=== PATIENT | female | born 1970 | race Caucasian/White ===

== ENCOUNTER → 2016-04-30 | Outpatient (CLI) | payer OTHER ==
[~2016-04-30] MED LIST: ATOR-22 PO; BACL1TAB PO; BUSP15TA70 PO; CITA40TA4 PO; CYCL10TA6 PO; DRGTP100 TOP; FENT75DI2 TOP; GABA300C19 PO; HYDR-3419 PO; HYDR-3983 PO; LISI-725 PO; LISI10TA PO; ONDA4TAB65 PO; OXYC-57 PO
--- NOTE | 2016-04-30 16:18 | DIAGNOSTIC IMAGING REPORT ---
L-SPINE FLEX/EXT BENDING MIN 6 CLINICAL HISTORY: CHRONIC LOW BACK PAIN COMPARISON STUDY: 11/13/2015 FINDINGS: Operative fusion L5-S1 with disc spacer placement. Minimal to mild degenerative vertebral disc change at the entire lumbar region. Anatomic alignment with the patient in flexion and extension. No evidence for subluxation on a positional basis. IMPRESSION: Postoperative changes L5-S1 consistent with a prior operative fusion. Anatomic alignment on all images Electronically signed by: Alex Lanier M.D. 04/30/2016 4:16 PM Dictated Date/Time: 04/30/2016 4:15 PM
[2016-04-30 18:43] LABS: ALT/SGPT 28 U/L (12-78); AST/SGOT 15 U/L (15-37); BLOOD UREA NITROGEN 10 mg/dl (7-18); BUN/CREATININE RATIO 10.3 (10-20); CALCIUM 9.2 mg/dl (8.5-10.1); CARBON DIOXIDE 27 mmol/L (21-32); CHLORIDE 109 mmol/L (98-107); CREATININE 0.98 mg/dl (0.60-1.20); GLUCOSE 83 mg/dl (70-99); POTASSIUM 4.2 mmol/L (3.5-5.1); SODIUM 144 mmol/L (136-145)
[2016-04-30 18:45] LABS: ALB/GLOB RATIO 1.2 (0.9-2); ALKALINE PHOSPHATASE 65 U/L (45-117); CHOLESTEROL 149 mg/dl (0-200); CHOLESTEROL/HDL RATIO 2.9; HDL CHOLESTEROL 52 mg/dl; LDL CHOLESTEROL CALCULATED 54 mg/dl; TRIGLYCERIDES 214 mg/dl (0-150); VERY LOW DENSITY LIPOPROT CALC 43 mg/dl
== END | disposition home or self-care (01) ==
LOC: C.RADPV 15:35
PROVIDERS: ATTEND Nurse Practitioner
DX: M54.5 Low back pain (principal); I10 Essential (primary) hypertension; E55.9 Vitamin D deficiency, unspecified; E78.5 Hyperlipidemia, unspecified

== ENCOUNTER → 2016-06-24 | Outpatient (CLI) | payer OTHER ==
[~2016-06-24] MED LIST changes: +GABA-1218 PO; -GABA300C19 PO
== END | disposition home or self-care (01) ==
LOC: C.PATHSPEC 17:14
PROVIDERS: ATTEND Plastic Surgery
DX: L72.11 Pilar cyst (principal)

== ENCOUNTER 2016-12-17 14:21 | Emergency (ER) | payer OTHER ==
[~2016-12-17] VITALS: Ht 180.3 cm; Wt 120.0 kg
[~2016-12-17 14:21] MED LIST changes: -ATOR-22 PO; -BACL1TAB PO; -BUSP15TA70 PO; -CITA40TA4 PO; -DRGTP100 TOP; -GABA-1218 PO; +GABA300C19 PO; -HYDR-3419 PO; -LISI-725 PO; -OXYC-57 PO
[2016-12-17 14:38] VITALS: TEMP 36.9; Ht 180.3 cm; Wt 120.0 kg
[2016-12-17] MEDS ORDERED: CYCLOBENZAPRINE HCL 10 MG TAB PO STA (15:14)
[2016-12-17] MEDS ORDERED: KETOROLAC TROMETHAMINE 30 MG/ML VIAL IV STA (15:14)
[2016-12-17] MEDS ORDERED: DEXAMETHASONE SOD INJ 4 MG/ML VIAL IV ONE (15:15)
[2016-12-17] MEDS ORDERED: HYDROmorphone INJ 1 MG/ML SYR IV PRN (15:15)
--- NOTE | 2016-12-17 15:28 | EMERGENCY ROOM VISIT NOTE ---
History First contact with patient: 14:55 Chief Complaint: BACK PAIN Stated Complaint: SEVERE BACK PAIN History of Present Illness The patient is a 46 year old female who presents to the Emergency Room with complaints of lower back pain radiating down her left leg greater than right. The patient has a history of chronic back pain. She has had 2 surgeries on her back. She follows with pain management. She does occasionally get numbness and tingling into her legs also. She denies any urinary or bowel incontinence. The patient wears a fentanyl patch 100 g daily. She also has Vicodin at home to take every 6 hours. This has not been helping with her pain this week. The patient remembers rolling over in bed and feeling a pop earlier in the week. She has had this pain since. She denies any fever, chills or infectious symptoms. Review of Systems 10 system review performed and negative unless noted in HPI or below Past Medical/Surgical History Medical Problems: (1) Anxiety (2) Chronic, continuous use of opioids (3) Depression (4) Hypertension (5) Lumbago Family History Diabetes, hypertension, heart disease Social History Smoking Status: Current Every Day Smoker Alcohol Use: none Drug Use: none Marital Status: Housing Status: lives with family Occupation Status: unemployed Current/Historical Medications Scheduled Atorvastatin (Lipitor), 20 MG PO DAILY Baclofen (Lioresal), 10 MG PO TID Buspirone Hcl (Buspar), 15-22.5 MG PO BID Citalopram Hydrobromide (Citalopram Hydrobromide), 40 MG PO DAILY Fentanyl (Fentanyl), 100 MCG TOP CQ72HR Gabapentin (Neurontin), 900 MG PO TID Lisinopril (Zestril), 20 MG PO DAILY Scheduled PRN Cyclobenzaprine Hcl (Flexeril), 10 MG PO TID PRN for Muscle Spasm Hydrocodon/Acetaminophen 5MG/300MG (Vicodin (5MG/300MG)), 1 TAB PO Q4H PRN for Pain Hydrocodone/Acetaminophen 7.5MG/325MG (Enderlin 7.5MG/325MG), 1 TAB PO Q6H PRN for Pain Ondansetron Hcl (Zofran), 4 MG PO TID PRN for Nausea or Vomiting Physical Exam Vital Signs Date Time Temp Pulse Resp B/P (MAP) Pulse Ox O2 Delivery O2 Flow Rate FiO2 12/17/16 18:17 81 18 130/68 96 12/17/16 17:24 73 20 127/59 94 Room Air 12/17/16 16:28 73 18 130/74 97 Room Air 12/17/16 14:38 36.9 87 17 138/91 98 Room Air Physical Exam VITALS: Vitals are noted on the nurse's note and reviewed by myself. Vital signs stable. GENERAL: 46-year-old female, obviously uncomfortable SKIN: The skin was without rashes, erythema, edema, or bruising. HEAD: Normocephalic atraumatic. MOUTH: Mucous membranes moist. NECK: Supple without nuchal rigidityCervical spine is nontender. No JVD. HEART: Regular rate and rhythm without murmurs gallops or rubs. LUNGS: Clear to auscultation bilaterally without wheezes, rales or rhonchi. No accessory muscle use. MUSCULOSKELETAL: Mild tenderness over the spinal processes in the lumbar spine. Tenderness also elicited over the left SI joint. Positive straight leg test on the left. DP pulse +2 bilaterally. Strength 5/5 throughout. NEURO: Patient was alert and oriented to person place and time. Normal sensation to touch. No focal neurological deficits. Medical Decision & Procedures Laboratory Results Test 12/17/16 15:34 Urine Test NEG (NEG) Medications Administered Medications (Trade) Dose Ordered Sig/Lida Route Start Time Stop Time Status Last Admin Dose Admin Cyclobenzaprine HCl (Flexeril Tab) 10 mg NOW STAT PO 12/17/16 15:14 12/17/16 15:16 DC 12/17/16 15:35 10 MG Hydromorphone HCl (Dilaudid Inj) 1 mg Q1H PRN IV 12/17/16 15:15 12/17/16 18:42 DC 12/17/16 15:35 1 MG Ketorolac Tromethamine (Toradol Inj) 30 mg NOW STAT IV 12/17/16 15:14 12/17/16 15:16 DC 12/17/16 15:35 30 MG Dexamethasone Sodium Phosphate (Decadron Inj) 10 mg NOW ONCE IV 12/17/16 15:15 12/17/16 15:16 DC 12/17/16 15:35 10 MG Hydromorphone HCl (Dilaudid Inj) 2 mg ONE ONCE IV 12/17/16 16:30 12/17/16 16:31 DC 12/17/16 16:36 2 MG Acetaminophen/ Hydrocodone Bitart (Enderlin 5/325mg Home Pack) 1 homepack UD ONCE PO 12/17/16 18:15 12/17/16 18:16 DC 12/17/16 18:16 1 HOMEPACK ED Course The patient was seen and examined A saline lock was established She was given Dilaudid 1 mg IV, Toradol 30 mg IV and Decadron 10 mg IV. She was given Flexeril 10 mg by mouth Upon reevaluation, she was still complaining of significant pain. She was given Dilaudid 2 mg IV. This seemed to help for approximately 30 minutes. The case was discussed with Dr. Muñiz from pain management. We formulated a plan. This was discussed with the patient and the patient's significant other. She was comfortable with this plan. She was given a home pack of baclofen and Vicodin She was discharged home with a dray truck driver. Medical Decision Differential diagnosis: Spine fracture, ligamentous injury, subluxation, spondylolisthesis, spondylosis, herniated disc, contusion, muscle spasm This patient is a 46-year-old female that presents emergency department with complaints of lower back pain radiating into her left leg. This pain is chronic in nature. There was no traumatic injury. I did not find imaging necessary. There are no deficits such as urinary or bowel incontinence. Sensation in the lower extremities is intact. The case was discussed with pain management. They suggested trying baclofen instead of Flexeril. She will follow up with pain management next week in the office, return to the emergency department with any new or worsening symptoms Medication Reconcilliation Current Medication List: was personally reviewed by me Blood Pressure Screening Patient's blood pressure: Elevated blood pressure Blood pressure disposition: Elevated BP felt to be situational Consults Consulting Physician: Dr. Muñiz Impression Primary Impression: Chronic back pain Departure Information Dispostion Home / Self-Care Condition FAIR Prescriptions Baclofen (LIORESAL) 10 Mg Tab 10 MG PO TID for Muscle Spasms, #20 TAB Prov: Marianna Baires PA-C 12/17/16 Hydrocodon/Acetaminophen 5MG/300MG (VICODIN (5MG/300MG)) 1 Tab Tab 1 TAB PO Q4H Y for Pain, #15 TAB Prov: Marianna Baires PA-C 12/17/16 Referrals No Doctor, Assigned (PCP) Patient Instructions [facility] Additional Instructions You were evaluated in the emergency department for back pain. The case was discussed with Dr. Muñiz from pain management who recommended trying a different muscle relaxant. You may take 2 of your current dose of Vicodin every 4 hours as needed for pain over the next [address] or drink alcohol taking this medication. It will make you drowsy. I recommend a stool softener such as Colace 100 mg 1 tab twice daily while taking this medication, as this can cause constipation. Please stop Flexeril. Take baclofen 1 tablet every 8 hours as needed for muscle spasms. Again, do not drive or drink alcohol taking this medication. Please call the pain management doctor first thing Tuesday morning for a follow- up appointment Return to the emergency department if you have any of the following symptoms: -Urinary or bowel incontinence -Numbness in your groin -Any new injury
[2016-12-17] MEDS ORDERED: DRGTP100 TOP (16:11)
[2016-12-17] MEDS ORDERED: LISI-725 PO (16:11)
[2016-12-17] MEDS ORDERED: CYCL10TA6 PO (16:11)
[2016-12-17] MEDS ORDERED: HYDROmorphone INJ 1 MG/ML SYR IV ONE (16:30)
[2016-12-17] MEDS ORDERED: BUSP15TA70 PO (17:52)
[2016-12-17] MEDS ORDERED: ATOR-22 PO (17:52)
[2016-12-17] MEDS ORDERED: BACLOFEN 10 MG TAB PO SCH (18:00)
[2016-12-17] MEDS ORDERED: BACLOFEN 10 MG TAB PO PRN (18:00)
[2016-12-17] MEDS ORDERED: BACL1TAB PO (18:03)
[2016-12-17] MEDS ORDERED: HYDR-3419 PO (18:03)
[2016-12-17] MEDS ORDERED: NORCO 5/325MG HOME PACK PO ONE (18:15)
[2016-12-17 18:17] VITALS: BP 130/68; PULSE 81; O2SAT 96
[2016-12-17] MEDS ORDERED: CITA40TA4 PO (21:18)
== END 2016-12-17 18:17 | disposition home or self-care (01) ==
LOC: C.EDB 14:22
DX: G89.29 Other chronic pain (principal); M54.5 Low back pain; I10 Essential (primary) hypertension; F41.9 Anxiety disorder, unspecified; F32.9 Major depressive disorder, single episode, unspecified; F17.200 Nicotine dependence, unspecified, uncomplicated; Z83.3 Family history of diabetes mellitus; Z82.49 Family history of ischemic heart disease and other diseases of the circulatory system; Z79.899 Other long term (current) drug therapy

== ENCOUNTER → 2017-05-31 | Outpatient (CLI) | payer OTHER ==
[~2017-05-31] MED LIST changes: +ATOR-22 PO; +BUSP15TA70 PO; +CITA40TA4 PO; +DRGTP100 TOP; -FENT75DI2 TOP; +GABA-1218 PO; -GABA300C19 PO; +LISI-725 PO; -LISI10TA PO
[2017-05-31 13:42] LABS: BLOOD UREA NITROGEN 9 mg/dl (7-18); CALCIUM 8.9 mg/dl (8.5-10.1); CARBON DIOXIDE 29 mmol/L (21-32); CHOLESTEROL 167 mg/dl (0-200); CREATININE 1.04 mg/dl (0.60-1.20); GLUCOSE 96 mg/dl (70-99); SODIUM 140 mmol/L (136-145)
[2017-05-31 13:48] LABS: LDL CHOLESTEROL CALCULATED 77 mg/dl
== END | disposition home or self-care (01) ==
LOC: C.LABPVFM 10:36
PROVIDERS: ATTEND Nurse Practitioner
DX: R79.89 Other specified abnormal findings of blood chemistry (principal); I10 Essential (primary) hypertension; E78.5 Hyperlipidemia, unspecified

== ENCOUNTER → 2017-06-16 | Outpatient (CLI) | payer OTHER ==
[2017-06-16 17:17] LABS: BASO % 0.3 %; BASO ABS # 0.03 K/uL (0-0.2); HEMATOCRIT 45.5 % (37-47); HEMOGLOBIN 14.5 g/dL (12.0-16.0); IG# 0.05 K/uL (0.00-0.02); LYMPH % 45.1 %; LYMPH ABS # 4.42 K/uL (1.2-3.4); MEAN CELL VOLUME 96.4 fL (80-100); MEAN CORPUSCULAR HEMOGLOBIN 30.7 pg (25-34); MEAN CORPUSCULAR HGB CONC 31.9 g/dl (32-36); MEAN PLATELET VOLUME 10.9 fL (7.4-10.4); MONO % 5.3 %; MONO ABS # 0.52 K/uL (0.11-0.59); NEUT % 46.8 %; NEUT ABS # 4.59 K/uL (1.4-6.5); PLATELET COUNT 206 K/uL (130-400); RED CELL DISTRIBUTION WIDTH CV 14.5 % (11.5-14.5); RED CELL DISTRIBUTION WIDTH SD 51.7 fL (36.4-46.3); WHITE BLOOD COUNT 9.81 K/uL (4.8-10.8)
== END | disposition home or self-care (01) ==
LOC: C.LABPVFM 15:10
PROVIDERS: ATTEND Physician Assistant Medical
DX: Z01.812 Encounter for preprocedural laboratory examination (principal); Z04.9 Encounter for examination and observation for unspecified reason; M54.5 Low back pain; M51.26 Other intervertebral disc displacement, lumbar region

== ENCOUNTER → 2017-06-20 | Outpatient (CLI) | payer OTHER ==
--- NOTE | 2017-06-20 09:59 | DIAGNOSTIC IMAGING REPORT ---
THORACOLUMBAR SPINE 2 VIEWS CLINICAL HISTORY: POST SPINAL CORD STIMULATOR COMPARISON STUDY: Lumbar spine radiograph April 30, 2016. FINDINGS: Spinal cord electrode is in place. Electrode appears intact. The electrode enters the canal at the T12-L1 level. Electrode tip is at the T9 level and projects over the posterior aspect of the canal. No fracture is identified within the lower thoracic or lumbar spine. There are cholecystectomy clips. An L5-S1 fusion is partially imaged. IMPRESSION: 1. Interval placement of spinal cord stimulator. Electrode intact with tip at the mid T9 level. 2. No lumbar spine fracture. Electronically signed by: Josh Pittman M.D. 06/20/2017 9:58 AM Dictated Date/Time: 06/20/2017 9:55 AM
== END | disposition home or self-care (01) ==
LOC: C.RADBC 09:18
PROVIDERS: ATTEND Anesthesiology
DX: Z04.8 Encounter for examination and observation for other specified reasons (principal)

== ENCOUNTER 2017-08-09 11:21 | Day surgery (SDC) | payer BC, OTHER ==
[2017-07-28 08:47] VITALS: BMI 37.0
--- NOTE | 2017-07-28 09:13 | PAT Medication Instructions ---
Service Date July 28, 2017. Current Home Medication List Atorvastatin (Lipitor), 20 MG PO QAM Buspirone Hcl (Buspar), 22.5 MG PO BID Cholecalciferol (Vitamin D3), 1 CAP PO QPM Cyclobenzaprine Hcl (Flexeril), 10 MG PO TID Duloxetine HCl (Cymbalta), 80-90 CAP PO QAM Fentanyl (Fentanyl), 100 MCG TOP CQ72HR Gabapentin (Neurontin), 750 MG PO TID Lisinopril (Zestril), 20 MG PO QPM Ondansetron Hcl (Zofran), 4 MG PO TID PRN for Nausea or Vomiting Oxycodone/Acetaminophen 5MG/325MG (Percocet 5MG/325MG), 1 TABLET PO Q6H PRN for Pain Medication Instructions For Your Scheduled Surgery -Continue as directed: Fentanyl (Fentanyl), 100 MCG TOP CQ72HR - Hold the following medications the morning of surgery: Cyclobenzaprine Hcl (Flexeril), 10 MG PO TID - Take the following medications the morning of surgery with a sip of water: Atorvastatin (Lipitor), 20 MG PO QAM Buspirone Hcl (Buspar), 22.5 MG PO BID Duloxetine HCl (Cymbalta), 80-90 CAP PO QAM Gabapentin (Neurontin), 750 MG PO TID Ondansetron Hcl (Zofran), 4 MG PO TID PRN for Nausea or Vomiting (if needed) Oxycodone/Acetaminophen 5MG/325MG (Percocet 5MG/325MG), 1 TABLET PO Q6H PRN for Pain (if needed, can be taken up to four hours before surgery) - Take the following medications as scheduled the night before surgery: Buspirone Hcl (Buspar), 22.5 MG PO BID Cholecalciferol (Vitamin D3), 1 CAP PO QPM Cyclobenzaprine Hcl (Flexeril), 10 MG PO TID Gabapentin (Neurontin), 750 MG PO TID Lisinopril (Zestril), 20 MG PO QPM Ondansetron Hcl (Zofran), 4 MG PO TID PRN for Nausea or Vomiting (if needed) Oxycodone/Acetaminophen 5MG/325MG (Percocet 5MG/325MG), 1 TABLET PO Q6H PRN for Pain (if needed) If you have any questions please call us at [phone] or [phone] or [phone]
[2017-07-28 10:19] LABS: BASO % 0.3 %; BASO ABS # 0.03 K/uL (0-0.2); EOS % 1.5 %; EOS ABS # 0.16 K/uL (0-0.5); HEMATOCRIT 43.6 % (37-47); HEMOGLOBIN 14.3 g/dL (12.0-16.0); IG# 0.03 K/uL (0.00-0.02); LYMPH % 31.9 %; LYMPH ABS # 3.41 K/uL (1.2-3.4); MEAN CELL VOLUME 95.6 fL (80-100); MEAN CORPUSCULAR HEMOGLOBIN 31.4 pg (25-34); MEAN CORPUSCULAR HGB CONC 32.8 g/dl (32-36); MEAN PLATELET VOLUME 10.8 fL (7.4-10.4); MONO % 5.2 %; MONO ABS # 0.56 K/uL (0.11-0.59); NEUT % 60.8 %; PLATELET COUNT 183 K/uL (130-400); RED CELL DISTRIBUTION WIDTH CV 14.2 % (11.5-14.5); RED CELL DISTRIBUTION WIDTH SD 49.9 fL (36.4-46.3); WHITE BLOOD COUNT 10.69 K/uL (4.8-10.8)
[2017-07-28 11:28] LABS: CALCIUM 9.4 mg/dl (8.5-10.1); CREATININE 1.02 mg/dl (0.60-1.20); POTASSIUM 3.9 mmol/L (3.5-5.1)
[~2017-08-09] VITALS: Ht 180.3 cm; Wt 121.5 kg
[~2017-08-09 11:21] MED LIST changes: +ATROPINE SULFATE 0.1 MG/ML 5ML SYR IV PRN; +CEFAZOLIN 2000 MG/60 ML D5W 50 ML IV SCH; +CHOL2000 PO; -CITA40TA4 PO; +DULO-24 PO; +EpHEDrine SULFATE INJ 50 MG/ML AMP IV PRN; -HYDR-3983 PO; +HYDROmorphone INJ 2 MG/ML SYR/VIAL IV PRN; +LACTATED RINGER'S 1000ML 1,000 ML IV SCH; +ONDANSETRON INJ 2 MG/ML 2 ML VIAL IV PRN; +OXYC-57 PO; +PHENYLEPHRINE 100MCG/ML 5ML SYR IV PRN
--- NOTE | 2017-08-09 11:39 | History & Physical Bridge Note ---
H&P Re-Evaluation Bridge Note: History reviewed, examination performed, pertinent laboratory and imaging studies reviewed. No contraindications noted to proceeding with the proposed procedure. Potential risks including infection, nerve injury, bleeding, hematoma or seroma formation, additional surgical procedures to address these complications, as well as failure to achieve complete relief of preoperative symptoms after the procedure were discussed with the patient. Risks associated with anesthesia required to perform this procedure were reviewed. Alternatives to this procedure were discussed with the patient. Patient's questions were answered. Patient gave informed consent. I have examined the patient, reviewed the History & Physical and in the interval since the performance of the History & Physical I have noted the following changes of clinical significance: No changes noted
[2017-08-09 11:43] VITALS: BP 146/77; PULSE 88; TEMP 37.7; O2SAT 95; Ht 180.3 cm; Wt 121.5 kg
[2017-08-09] MEDS ORDERED: EpINEphrine INJ 1MG/ML AMP 1 MG/ML AMP ONE (12:34)
[2017-08-09] MEDS ORDERED: POVIDONE-IODINE OP SOLN 30 ML BTL ONE (12:34)
[2017-08-09] MEDS ORDERED: BUPIVACAINE 0.25% 30 ML VIAL ONE (12:34)
[2017-08-09] MEDS ORDERED: MIDAZOLAM HCL 1 MG/ML 2ML VIAL ONE (13:08)
[2017-08-09] MEDS ORDERED: FENTANYL CITRATE INJ 50 MCG/1 ML 2 ML VIAL ONE ×3 (13:08→15:40)
[2017-08-09] MEDS ORDERED: LIDO 2%/EPINEPHRINE 1:100000 20 ML VIAL ONE (14:43)
[2017-08-09] MEDS ORDERED: LIDOCAINE 2% 20 MG/ML 5ML SYR ONE (15:21)
[2017-08-09] MEDS ORDERED: ONDANSETRON INJ 2 MG/ML 2 ML VIAL ONE (15:44)
[2017-08-09] MEDS ORDERED: PROPOFOL IV EMULSION 10 MG/ML 20 ML VIAL ONE ×2 (15:56→16:32)
[2017-08-09] MEDS ORDERED: LIDOCAINE/EPINEPHRINE 2% 1:200,000 20 ML SDV INJ ONE (16:27)
--- NOTE | 2017-08-09 16:53 | [facility] Operative Report ---
Operative Report Operative Date August 09, 2017. Pre-Operative Diagnosis Chronic neuropathic pain of the bilateral lower extremities; lumbar post-laminectomy syndrome Post-Operative Diagnosis Chronic neuropathic pain of the bilateral lower extremities; lumbar post-laminectomy syndrome Procedure(s) Performed Implantation of Spinal Cord Stimulator Surgeon Dr. Aleman Estimated Blood Loss 5cc Specimens None Drains None Anesthesia Type MAC Complication(s) none Disposition Recovery Room / PACU Description of Procedure INSERTION OF SPINAL CORD STIMULATOR LEAD AND PULSE GENERATOR PREOPERATIVE DIAGNOSIS: Lumbar postlaminectomy syndrome. POSTOPERATIVE DIAGNOSIS: Same. PROCEDURE PERFORMED: 1. Percutaneous insertion of a trial Medtronic Octrode lead x2 using biplanar fluoroscopy. 2. Interrogation and reprogramming of spinal cord stimulator lead. SURGEON: Dr. Aleman. ANESTHESIA: Monitored anesthesia care. LEADS PLACED: 2 electrodes leads with the 0 electrode at T9 vertebral body. Left and right of midline Prior to starting, the Patients diagnosis and the procedure were reviewed with the patient in detail. Possible risks and complications including infection, bleeding, damage to surrounding structures and increased pain were discussed. Alternative therapies were also reviewed. Patients questions were answered and they agreed to proceed. Informed consent was obtained. Allergies and medication list was reviewed. The patient was brought to the procedure room and placed in prone position. Immediately prior to starting the procedure, a ``time out was conducted with the staff and the patient where the patient was identified, proposed procedure was verified, consent was reviewed and the proper site for the planned procedure was identified. Pre-procedure antibiotic was given consisting of cefazolin 2 g. Patient was given any intravenous conscious sedation by members of the Anesthesia Department. Constant verbal contact was maintained throughout the procedure. Biplanar fluoroscopy was used to assist in placement of the needle as well as to evaluate final needle position prior to the injection. On examination, no signs of skin breakdown or infection were noted at the injection site. The site was cleansed with DuraPrep followed by Betadine. Sterile drapes were applied. Patient tolerated the procedure uneventfully without complications. Patient was brought to recovery area and observed. Vital signs were stable prior to discharge. Patient was discharged home with standard discharge instructions after approximately 30 minutes with an adult hammer driver. Thoracolumbar spine was prepped with DuraPrep followed by Betadine solution and draped in sterile fashion. Ioban was placed over the operative area. Next the T12-L1 interspace was identified in a true AP view for epidural access. The skin and subcutaneous tissues over the right pedicle of L2 vertebra was anesthetized with 2% Xylocaine with 1-2 of those epinephrine, [address] to the lamina using a 22-gauge, 3.5 spinal needle. A 14 gauge Medtronic Tuohy epidural needle was inserted until it made contact with the lamina of L1 and walked off the lamina into the T12/L1 interspace. Loss of resistance to wire technique was utilized for entrance into the epidural space. Next an Octrode lead was passed through the Tuohy epidural needle and positioned in the midline so that the 0 electrode was located at the superior edge of the T9 vertebra. At this point, the patient was questioned and coverage of the painful area was confirmed. The confirmation of the covered area was obtained multiple times throughout the trial. No CSF, blood or paresthesia were noted during placement of the lead. Using similar technique, a second lead was placed on the right side uneventfully and position was adjusted to optimize the stimulation on that side. Once lead position was optimized, an incision was made at the needle entry site with a scalpel. Hemostasis obtained using electrocautery. Dorsal lumbar fascia was exposed and using the anchoring device, both leads were anchored to the dorsal lumbar fascia using 0 silk sutures. Next, in the right hip area a pocket was created using scalpel electrocautery. Hemostasis was obtained using electrocautery. Next, using a tunneling device from the pocket site to the back incision, the leads were brought to the pocket site. Leads were connected to a rechargeable pulse generator. Impedance checked and found to be appropriate. The generator was secured to the fascia using 0 Prolene sutures. Both wounds were irrigated with bacitracin-containing normal saline. Both wounds were closed in similar fashion using continuous 0 strata fix, antibiotic coated suture for deeper layer and running 3-0 antibiotic coated strata fix suture for subcuticular layer. Prineo dressing was applied to the skin. 4 x 4 gauze and pressure dressing was applied to both sites. Abdominal binder was placed. Ga was then taken to the recovery room. No complications occurred. The stimulus programmed in the recovery room. I attest to the content of the Intraoperative Record and any orders documented therein. Any exceptions are noted below.
--- NOTE | 2017-08-09 16:58 | Discharge Instructions ---
Discharge Instructions Date of Service August 09, 2017. Visit Reason for Visit: Chronic Lumbago, Post Laminectomy Syndrome, Chroni Discharge Discharge Diagnosis / Problem: Chronic pain due to lumbar postlaminectomy syndrome. Insertion of a spinal Discharge Goals Goal(s): Decrease discomfort, Improve function Medications Stopped Medications Name(s): None Activity Recommendations Activity Recommendations: no lifting of items 5lbs or more, no repetitive bending, no repetitive twists, no repetitive reaching over head, no showers for 3 days Lifting Limitations: no more than 5 pounds May Resume Sexual Activity: after follow-up appointment Shower/Bathe: may shower/bathe in 3 days Driving or Machine Use: resume 3 days after discharge Anesthesia . Post Anesthesia Instructions: If you have had General Anesthesia or IV Sedation: * Do not drive today. * Resume driving when surgeon permits. * Do not make important decisions or sign legal documents today. * Call surgeon for: * Temperature elevations greater than 101 degrees F. * Uncontrollable pain. * Excessive bleeding. * Persistent nausea and vomiting. * Medication intolerance (nausea, vomiting or rash). * For nausea and vomiting use only clear liquids such as: tea, soda, bouillon until nausea subsides, then gradually increase diet as tolerated. * If you have any concerns or questions, call your surgeon's office. If physician is unavailable and it is an emergency, call 911 or go to the nearest emergency room. . Instructions Instructions / Follow-Up . * Change dressings daily. Apply sterile dry gauze. * Call [facility] [phone] or go to the nearest emergency room if he experience high fevers, new back pain, new neurological symptoms such as numbness or weakness in the lower extremity or new bowel bladder incontinence. Also of call if he experience a headache that is positional. * Wear abdominal binder. * No showers for 3 days. * Resume normal activity. No repetitive bending, twisting or reaching overhead for 2 weeks. Do not lift more than 5 pounds for 2 weeks. . Follow-Up Follow-Up: 1 week in office for wound check Diet Recommendations Home Diet: no limitations Procedures Procedures Performed: Implantation of Spinal Cord Stimulator Pending Studies Studies pending at discharge: no Medical Emergencies . Who to Call and When: Medical Emergencies: If at any time you feel your situation is an emergency, please call 911 immediately. . Non-Emergent Contact Non-Emergency issues call your: Pain Management provider Call Non-Emergent contact if: temperature is above 101.5, your pain is not controlled, your pain is unusual for you, wound has increased drainage, wound has increased redness, wound has increased pain . . "Provider Documentation" section prepared by Hema Aleman. . [place] Drug Monitoring Program Search Results: patient reviewed within database
[2017-08-09] MEDS ORDERED: HYDROCODONE/ACETAMIN 5/325MG TAB PO PRN (17:00)
[2017-08-09] MEDS ORDERED: HYDROmorphone INJ 0.5 MG/0.5 ML SYR ONE (17:02)
--- NOTE | 2017-08-09 17:27 | Anesthesiology Progress Note ---
Anesthesia Post Op Note Date & Time August 09, 2017 at 17:27 Vital Signs Pain Intensity: 4 Vital Signs Past 12 Hours Date Time Temp Pulse Resp B/P (MAP) Pulse Ox O2 Delivery O2 Flow Rate FiO2 08/09/17 17:23 67 18 08/09/17 17:23 68 18 95 08/09/17 17:21 113/77 08/09/17 17:18 68 19 93 08/09/17 17:18 66 19 08/09/17 17:16 109/56 08/09/17 17:13 69 15 93 08/09/17 17:13 68 15 08/09/17 17:11 116/62 08/09/17 17:08 73 21 08/09/17 17:08 74 21 95 08/09/17 17:06 137/66 08/09/17 17:03 70 13 92 08/09/17 17:03 70 13 08/09/17 17:01 115/74 08/09/17 16:58 73 08/09/17 16:58 37.2 76 16 121/78 95 Room Air 08/09/17 16:58 73 121/78 94 08/09/17 11:43 37.7 88 18 146/77 (100) 95 Room Air Notes Mental Status: alert / awake / arousable, participated in evaluation Pt Amnestic to Procedure: Yes Nausea / Vomiting: adequately controlled Pain: adequately controlled Airway Patency, RR, SpO2: stable & adequate BP & HR: stable & adequate Hydration State: stable & adequate Anesthetic Complications: no major complications apparent
[2017-08-09 17:31] VITALS: BP 119/59; PULSE 70; TEMP 36.7; O2SAT 97
[2017-08-09 18:00] VITALS: BP 116/61; PULSE 69; TEMP 36.7; O2SAT 93
--- NOTE | 2017-08-09 18:20 | DIAGNOSTIC IMAGING REPORT ---
THORACIC SPINE 3 VIEWS ROUTINE HISTORY: 46 years-old Female Evaluate spinal cord stimulator leads chronic mid and lower back pain COMPARISON: Spot fluoroscopic images of the lumbar spine of same day TECHNIQUE: 4 views of the thoracic spine FINDINGS: Battery pack projects over the abdominal right lower quadrant. There are 2 spinal stimulator leads noted which appear to be intact and enter the central canal at the level of T12-L1 with leads extending superiorly terminating at the level of the T8-T9 disc space. Mostly mild multilevel intervertebral disc space narrowing with spondylitic spurring about the thoracic spine. No acute fracture or subluxation identified. Partially imaged fusion hardware of the lower lumbar spine. Cholecystectomy clips are noted. Lungs appear hypoinflated. IMPRESSION: 1. Intact spinal stimulator leads terminate at the level of the T8-T9 disc space. 1. Mild multilevel degenerative changes. The above report was generated using voice recognition software. It may contain grammatical, syntax or spelling errors. Electronically signed by: Guille Kirby M.D. 08/09/2017 6:19 PM Dictated Date/Time: 08/09/2017 6:15 PM
[2017-08-09 18:30] VITALS: BP 122/80; PULSE 76; TEMP 36.9; O2SAT 94
== END 2017-08-09 18:35 | disposition home or self-care (01) ==
LOC: C.ACU 11:21
PROVIDERS: ATTEND Anesthesiology
DX: G57.83 Other specified mononeuropathies of bilateral lower limbs (principal); G89.28 Other chronic postprocedural pain; M96.1 Postlaminectomy syndrome, not elsewhere classified; F41.9 Anxiety disorder, unspecified; F32.9 Major depressive disorder, single episode, unspecified; I10 Essential (primary) hypertension; E78.5 Hyperlipidemia, unspecified; E78.00 Pure hypercholesterolemia, unspecified; E66.01 Morbid (severe) obesity due to excess calories; K21.9 Gastro-esophageal reflux disease without esophagitis; F11.20 Opioid dependence, uncomplicated; Z98.1 Arthrodesis status; F17.210 Nicotine dependence, cigarettes, uncomplicated; Z88.5 Allergy status to narcotic agent; Z88.8 Allergy status to other drugs, medicaments and biological substances; Z96.649 Presence of unspecified artificial hip joint